=== PATIENT | male | born 1965 | race Caucasian/White ===

== ENCOUNTER 2021-10-17 15:46 | Inpatient (IN) | payer OTHER, SELFPAY ==
[~2021-10-17] VITALS: Ht 170.2 cm; Wt 74.8 kg
[2021-10-17 15:51] VITALS: BP_SYST 144
[2021-10-17] MEDS ORDERED: LORazepam 2 MG/ML VIAL IVP ONE ×2 (17:15→20:15)
[2021-10-17 17:21] LABS: CALCIUM 8.2 mg/dL (8.4-11.0); CREATININE 1.36 mg/dL (0.55-1.30); POTASSIUM 3.8 mmol/L (3.5-5.1)
[2021-10-17 17:25] LABS: MEAN CORPUSCULAR HEMOGLOBIN 19 pg (27-31); MEAN CORPUSCULAR HGB CONC 25 % (32-36)
[2021-10-17 17:33] LABS: ALBUMIN 2.4 g/dL (3.4-4.8); TOTAL BILIRUBIN 3.1 mg/dL (0.0-1.0)
[2021-10-17] MEDS ORDERED: KETAMINE 30 MG/3 ML SYRINGE ONE (17:42)
[2021-10-17 17:44] LABS: MEAN CORPUSCULAR VOLUME 76 fL (79.0-98.0); PLATELET COUNT (AUTO) 171 K/uL (130-430); RED BLOOD CELL COUNT(AUTO) 2.79 MIL/uL (4.2-6.2); RED CELL DISTRIBUTION WIDTH 23.2 % (9.0-15.0); WHITE BLOOD COUNT (AUTO) 13.4 K/uL (4.8-10.8)
[2021-10-17] MEDS ORDERED: KETAMINE 30 MG/3 ML SYRINGE IVP ONE (17:45)
[2021-10-17 17:47] LABS: HEMOGLOBIN 5.3 g/dL (14.0-18.0)
[2021-10-17] MEDS ORDERED: PIPERACILLIN/TAZO 3.375 GM in NS 50 ML IV ONE ×2 (18:15→21:45)
[2021-10-17] MEDS ORDERED: PROPOFOL DRIP 100 ML IV ONE (18:45)
[2021-10-17] MEDS ORDERED: ROCURONIUM BROMIDE 10 MG/ML (ZEMURON) IV ONE (18:45)
[2021-10-17] MEDS ORDERED: ETOMIDATE 20 MG/ 10 ML VIAL (AMIDATE) IVP ONE (18:45)
[2021-10-17 18:50] LABS: INR 2.4 (0.80-1.20); PROTHROMBIN TIME 22.9 SECS (9.5-12.5)
[2021-10-17] MEDS ORDERED: DEXTROSE 50% JECT 50 ML DISP.SYRIN ONE (18:50)
[2021-10-17] MEDS ORDERED: DEXTROSE 50% JECT 50 ML DISP.SYRIN IVP ONE ×2 (19:00→20:00)
[2021-10-17] MEDS ORDERED: D5LR 500 ML IV ONE (19:00)
[2021-10-17] MEDS ORDERED: NOREPINEPHRINE 4 MG/4 ML VIAL IV ONE ×2 (19:00→23:52)
[2021-10-17] MEDS ORDERED: FOLIC ACID 5 MG/ML VIAL IV ONE ×2 (19:30→20:25)
[2021-10-17] MEDS ORDERED: THIAMINE HCL 100 MG/ML VIAL IV ONE (19:30)
[2021-10-17] MEDS ORDERED: MAGNESIUM SULFATE 50 ML IV ONE (19:30)
[2021-10-17] MEDS ORDERED: PIPERACILLIN/TAZOBACTAM 3.375 GM/VIAL (ZOSYN) IV ONE (19:51)
[2021-10-17] MEDS ORDERED: FOLIC ACID 1 MG, THIAMINE HCL 100 MG, MAGNESIUM SULFATE 2 GM, MVI 10 ML in NACL 0.9% 1,... IV ONE (20:15)
[2021-10-17 20:20] LABS: BILIRUBIN,URINE NEGATIVE (NEGATIVE); BLOOD, URINE 2+ (NEGATIVE); CLARITY/URINE CLEAR (CLEAR); COLOR,URINE YELLOW (YELLOW); GLUCOSE,URINE NEGATIVE (NEGATIVE); KETONES,URINE 1+ (NEGATIVE); LEUKOCYTE ESTERASE ,URINE NEGATIVE (NEGATIVE); NITRITE, URINE NEGATIVE (NEGATIVE); PH,URINE 5.5 (5.0-8.0); PROTEIN URINE NEGATIVE (NEGATIVE); UROBILINOGEN,URINE 0.2 (0.2-1.0)
[2021-10-17] MEDS ORDERED: MAGNESIUM SULFATE 1 GM/2 ML VIAL ONE (20:25)
[2021-10-17] MEDS ORDERED: MVI 10 ML VIAL IV ONE (20:25)
[2021-10-17] MEDS ORDERED: THIAMINE HCL 100 MG/ML VIAL ONE (20:25)
[2021-10-17] MEDS ORDERED: metroNIDAZOLE 500 mg/NS 100 ML IV ONE (20:30)
[2021-10-17] MEDS ORDERED: VANCOMYCIN HCL 1,000 MG in NS 250 ML IV ONE (20:30)
[2021-10-17] MEDS ORDERED: NACL 0.9% 2,000 ML IV ONE (20:30)
[2021-10-17 20:33] LABS: BARBITURATE, URINE NEGATIVE (NEG <=200); BENZODIAZEPINE, URINE NEGATIVE (NEG <=150); CANNABINOID, URINE NEGATIVE (NEG <=50); COCAINE, URINE NEGATIVE (NEG <=150); METHAMPHETAMINES SCREEN,URINE NEGATIVE (NEG <=500); OPIATE, URINE NEGATIVE (NEG <=100); PHENCYCLIDINE SCREEN,URINE NEGATIVE (NEG <=25); UR TRICYCLIC ANTIDEPRESSANTS NEGATIVE (NEG <=300); URINE AMPHETAMINE NEGATIVE (NEG <=500); URINE METHADONE NEGATIVE (NEG <=200); URINE OXYCODONE SCREEN NEGATIVE (NEG <=100); URINE PROPOXYPHENE SCREEN NEGATIVE (NEG <=300)
[2021-10-17] MEDS ORDERED: VANCOMYCIN HCL 1000 MG/VIAL IV ONE (20:39)
[2021-10-17 21:04] LABS: BACTERIA,URINE FEW /HPF (None Seen); RBC,URINE 0-3 /HPF (0-3); WBC,URINE 0-3 /HPF (0-3)
[2021-10-17] MEDS ORDERED: PANTOPRAZOLE SODIUM 80 MG in NS 100 ML IVP ONE (21:15)
[2021-10-17] MEDS: PANTOPRAZOLE SODIUM 40 MG in NS 50 ML IV SCH (21:15)
[2021-10-17] MEDS: D5LR 1,000 ML IV SCH (21:29)
[2021-10-17] MEDS ORDERED: PHYTONADIONE 10 MG/ML AMP SUBCUT ONE (21:30)
[2021-10-17] MEDS ORDERED: SODIUM BICARBONATE 8.4% JECT 50 MEQ/50 ML SYRINGE IVP ONE (21:30)
[2021-10-17] MEDS ORDERED: PANTOPRAZOLE SODIUM 40 MG/VIAL (PROTONIX) ONE ×2 (21:41→23:31)
[2021-10-17] MEDS: SODIUM BICARBONATE 8.4% JECT 150 MEQ in D5W 1,000 ML IVP SCH (21:45)
[2021-10-17 21:58] VITALS: BP_SYST 122
[2021-10-17] MEDS ORDERED: SODIUM BICARBONATE 8.4% JECT 50 MEQ/50 ML SYRINGE ONE ×2 (22:13→23:49)
[2021-10-17] MEDS ORDERED: NOREPINEPHRINE BITARTRATE 8 MG in D5W 242 ML IV PRN (22:30)
[2021-10-17] MEDS ORDERED: HYDROCORTISONE SOD SUCC 100 MG/2 ML VIAL ONE (22:36)
[2021-10-17] MEDS ORDERED: HYDROCORTISONE SOD SUCC 100 MG/2 ML VIAL IVP ONE ×2 (22:45)
[2021-10-17 22:59] LABS: BAND % (MANUAL) 2 % (0-6); BASOPHILS % (MANUAL) 0 % (0-2); EOSINOPHILS % (MANUAL) 0 % (0-7); LYMPHOCYTES % (MANUAL) 8 % (20-46); MONOCYTES % (MANUAL) 8 % (0-11)
[2021-10-17] MEDS: IPRATROPIUM/ALBUTEROL SULFATE 3 ML AMPUL.NEB (DUONEB) INH SCH (23:00)
[2021-10-17] MEDS ORDERED: SODIUM BICARBONATE 8.4% VIAL 50 MEQ/50 ML VIAL ONE (23:33)
[2021-10-17] MEDS ORDERED: ALBUMIN HUMAN 25% 200 ML IV ONE (23:45)
[2021-10-17 23:56] VITALS: BP_SYST 126
[2021-10-18] VITALS (32 sets, daily range): BP systolic 100–132
[2021-10-18] MEDS ORDERED: SODIUM BICARBONATE 8.4% JECT 50 MEQ/50 ML SYRINGE IVP ONE (00:15)
[2021-10-18] MEDS ORDERED: NOREPINEPHRINE BITARTRATE 8 MG in NS 242 ML IV PRN (00:15)
[2021-10-18] MEDS ORDERED: ALBUMIN HUMAN 25% 200 ML IV ONE (01:04)
[2021-10-18] MEDS ORDERED: PIPERACILLIN/TAZOBACTAM 3.375 GM/VIAL (ZOSYN) IV ONE (01:08)
[2021-10-18] MEDS: PIPERACILLIN/TAZO 3.375/DEX-IS 50 ML IV SCH ×4 (01:16→18:05)
[2021-10-18] MEDS ORDERED: NOREPINEPHRINE 4 MG/4 ML VIAL IV ONE ×2 (02:11)
[2021-10-18] MEDS: PANTOPRAZOLE SODIUM 40 MG in NS 50 ML IV SCH ×6 (02:15→21:37)
[2021-10-18] MEDS ORDERED: NOREPINEPHRINE BITARTRATE 16 MG in NS 234 ML IV PRN (02:15)
[2021-10-18] MEDS ORDERED: PANTOPRAZOLE SODIUM 40 MG/VIAL (PROTONIX) ONE ×3 (03:35→08:36)
[2021-10-18] MEDS: IPRATROPIUM/ALBUTEROL SULFATE 3 ML AMPUL.NEB (DUONEB) INH SCH ×6 (03:40→23:00)
[2021-10-18 06:06] LABS: BASOPHILS # (AUTO) 0.1 K/uL (0.0-0.2); BASOPHILS % (AUTO) 0.3 % (0.0-2.0); EOSINOPHILS # (AUTO) 0.1 K/uL (0.0-0.4); EOSINOPHILS % (AUTO) 0.5 % (0.0-4.0); HEMATOCRIT 27.1 % (36-54); HEMOGLOBIN 7.5 g/dL (14.0-18.0); LYMPHOCYTES # (AUTO) 1.8 K/uL (1.0-5.5); LYMPHOCYTES % (AUTO) 9.3 % (20.5-51.5); MEAN CORPUSCULAR HEMOGLOBIN 22 pg (27-31); MEAN CORPUSCULAR HGB CONC 28 % (32-36); MEAN CORPUSCULAR VOLUME 79 fL (79.0-98.0); MONOCYTES # (AUTO) 1.9 K/uL (0.0-1.0); NEUTROPHILS # (AUTO) 15.4 K/uL (1.8-7.7); NEUTROPHILS % (AUTO) 79.9 % (40.0-70.0); PLATELET COUNT (AUTO) 138 K/uL (130-430); RED BLOOD CELL COUNT(AUTO) 3.44 MIL/uL (4.2-6.2); RED CELL DISTRIBUTION WIDTH 21.6 % (9.0-15.0); WHITE BLOOD COUNT (AUTO) 19.3 K/uL (4.8-10.8)
[2021-10-18 06:17] LABS: ALBUMIN 2.8 g/dL (3.4-4.8); CREATININE 1.3 mg/dL (0.55-1.30); PHOSPHORUS 5.2 mg/dL (2.7-4.5); TOTAL BILIRUBIN 4.2 mg/dL (0.0-1.0)
[2021-10-18 06:35] LABS: CALCIUM 6.9 mg/dL (8.4-11.0)
[2021-10-18] MEDS: SODIUM BICARBONATE 8.4% JECT 150 MEQ in D5W 1,000 ML IVP SCH ×5 (06:57→21:09)
[2021-10-18] MEDS: HYDROCORTISONE SOD SUCC 100 MG/2 ML VIAL IVP SCH ×3 (07:05→18:06)
[2021-10-18] MEDS: D5LR 1,000 ML IV SCH ×2 (07:15→16:15)
[2021-10-18] MEDS ORDERED: PHYTONADIONE 10 MG/ML AMP SUBCUT ONE (07:30)
[2021-10-18 08:56] LABS: PROTHROMBIN TIME 30.7 SECS (9.5-12.5)
[2021-10-18] MEDS ORDERED: ETOMIDATE 20 MG/ 10 ML VIAL (AMIDATE) IVP ONE (08:58)
[2021-10-18] MEDS ORDERED: ROCURONIUM BROMIDE 10 MG/ML (ZEMURON) IV ONE (08:58)
[2021-10-18] MEDS: OCTREOTIDE ACETATE 1,250 MCG in NS 243.75 ML IV SCH (09:30)
[2021-10-18] MEDS ORDERED: KCL 40 mEq in 100 mL (PREMIX) 100 ML IV ONE (13:00)
[2021-10-18 13:04] LABS: BASOPHILS # (AUTO) 0.1 K/uL (0.0-0.2); BASOPHILS % (AUTO) 0.4 % (0.0-2.0); EOSINOPHILS % (AUTO) 0.2 % (0.0-4.0); HEMATOCRIT 24.7 % (36-54); HEMOGLOBIN 7.3 g/dL (14.0-18.0); LYMPHOCYTES # (AUTO) 1.3 K/uL (1.0-5.5); LYMPHOCYTES % (AUTO) 9.4 % (20.5-51.5); MEAN CORPUSCULAR HEMOGLOBIN 22 pg (27-31); MEAN CORPUSCULAR HGB CONC 30 % (32-36); MEAN CORPUSCULAR VOLUME 76 fL (79.0-98.0); MONOCYTES # (AUTO) 1.5 K/uL (0.0-1.0); NEUTROPHILS # (AUTO) 10.8 K/uL (1.8-7.7); PLATELET COUNT (AUTO) 123 K/uL (130-430); RED BLOOD CELL COUNT(AUTO) 3.27 MIL/uL (4.2-6.2); RED CELL DISTRIBUTION WIDTH 21.3 % (9.0-15.0); WHITE BLOOD COUNT (AUTO) 13.7 K/uL (4.8-10.8)
[2021-10-18] MEDS ORDERED: ERGOCALCIFEROL 8000 UNITS/ML ORAL SOLUTION, 60 ML BOTTLE NG ONE (13:15)
[2021-10-18 13:22] LABS: CALCIUM 8.3 mg/dL (8.4-11.0); CREATININE 1.87 mg/dL (0.55-1.30); PHOSPHORUS 3.3 mg/dL (2.7-4.5)
[2021-10-18 13:41] LABS: POTASSIUM 2.8 mmol/L (3.5-5.1)
[2021-10-18] MEDS ORDERED: POTASSIUM CHLORIDE 20 MEQ/PKT PACKET NG ONE (16:30)
[2021-10-18] MEDS: PROPOFOL DRIP 100 ML IV PRN (16:50)
[2021-10-18 17:04] LABS: INR 3.2 (0.80-1.20)
[2021-10-18 17:06] LABS: PROTHROMBIN TIME 30.7 SECS (9.5-12.5)
[2021-10-18] MEDS ORDERED: POTASSIUM CHLORIDE 20 MEQ/PKT PACKET ONE (17:59)
[2021-10-19] VITALS (34 sets, daily range): BP systolic 86–131
[2021-10-19] MEDS: SODIUM BICARBONATE 8.4% JECT 150 MEQ in D5W 1,000 ML IVP SCH ×2 (01:21→07:01)
[2021-10-19] MEDS: IPRATROPIUM/ALBUTEROL SULFATE 3 ML AMPUL.NEB (DUONEB) INH SCH ×6 (03:00→23:34)
[2021-10-19] MEDS: D5LR 1,000 ML IV SCH (03:15)
[2021-10-19] MEDS: OCTREOTIDE ACETATE 1,250 MCG in NS 243.75 ML IV SCH ×2 (05:37→09:57)
[2021-10-19] MEDS: PANTOPRAZOLE SODIUM 40 MG in NS 50 ML IV SCH ×4 (05:37→21:24)
[2021-10-19 06:16] LABS: BASOPHILS % (AUTO) 0.1 % (0.0-2.0); EOSINOPHILS # (AUTO) 0.1 K/uL (0.0-0.4); EOSINOPHILS % (AUTO) 0.7 % (0.0-4.0); HEMATOCRIT 24.7 % (36-54); HEMOGLOBIN 8.1 g/dL (14.0-18.0); LYMPHOCYTES # (AUTO) 0.6 K/uL (1.0-5.5); LYMPHOCYTES % (AUTO) 6.6 % (20.5-51.5); MEAN CORPUSCULAR HEMOGLOBIN 24 pg (27-31); MEAN CORPUSCULAR HGB CONC 33 % (32-36); MEAN CORPUSCULAR VOLUME 73 fL (79.0-98.0); MONOCYTES # (AUTO) 0.8 K/uL (0.0-1.0); MONOCYTES % (AUTO) 9.4 % (1.7-9.3); NEUTROPHILS # (AUTO) 7.3 K/uL (1.8-7.7); NEUTROPHILS % (AUTO) 83.2 % (40.0-70.0); PLATELET COUNT (AUTO) 89 K/uL (130-430); RED BLOOD CELL COUNT(AUTO) 3.38 MIL/uL (4.2-6.2); RED CELL DISTRIBUTION WIDTH 21.6 % (9.0-15.0); WHITE BLOOD COUNT (AUTO) 8.8 K/uL (4.8-10.8)
[2021-10-19] MEDS: MIDAZOLAM IN NACL,ISO-OSMOT/PF 100 ML IV PRN (06:23)
[2021-10-19] MEDS ORDERED: PHYTONADIONE 10 MG in NS 50 ML IV ONE (07:00)
[2021-10-19 07:01] LABS: ALBUMIN 2.4 g/dL (3.4-4.8); CALCIUM 7.9 mg/dL (8.4-11.0); CREATININE 2.06 mg/dL (0.55-1.30); TOTAL BILIRUBIN 4.8 mg/dL (0.0-1.0)
[2021-10-19] MEDS: HYDROCORTISONE SOD SUCC 100 MG/2 ML VIAL IVP SCH ×4 (07:01→18:25)
[2021-10-19] MEDS: PIPERACILLIN/TAZO 3.375/DEX-IS 50 ML IV SCH ×4 (07:34→18:26)
[2021-10-19] MEDS: PROPOFOL DRIP 100 ML IV PRN (08:34)
[2021-10-19 08:58] LABS: POTASSIUM 2.3 mmol/L (3.5-5.1)
[2021-10-19] MEDS ORDERED: POTASSIUM CHLORIDE 40 MEQ in NS 250 ML IV ONE ×2 (09:15→14:00)
[2021-10-19] MEDS: ERGOCALCIFEROL 8000 UNITS/ML ORAL SOLUTION, 60 ML BOTTLE NG SCH (09:53)
[2021-10-19] MEDS: NACL 0.9% 1,000 ML IV SCH (11:14)
[2021-10-19] MEDS ORDERED: NAPH,MB-DB/K PH,MBDB 250 MG TAB PO ONE (15:30)
[2021-10-19] MEDS ORDERED: DEXTROSE 50% JECT 50 ML DISP.SYRIN IVP PRN (15:30)
[2021-10-19] MEDS ORDERED: INSULIN REGULAR, HUMAN 100 UNITS/ML, 10 ML VIAL (humuLIN R) SUBCUT PRN (15:30)
[2021-10-19] MEDS ORDERED: NAPH,MB-DB/K PH,MBDB 250 MG TAB GT ONE (15:30)
[2021-10-19] MEDS ORDERED: ALBUMIN HUMAN 25% 200 ML IV ONE (15:45)
[2021-10-19 17:44] LABS: CALCIUM 7.8 mg/dL (8.4-11.0); CREATININE 2.06 mg/dL (0.55-1.30)
[2021-10-19] MEDS ORDERED: INSULIN REGULAR, HUMAN 100 UNITS/ML, 10 ML VIAL SUBCUT ONE (19:00)
[2021-10-19] MEDS ORDERED: K PHOS 30 MM in NS 250 ML IV ONE (19:45)
[2021-10-19] MEDS: NAPH,MB-DB/K PH,MBDB 250 MG TAB GT SCH (21:21)
[2021-10-19] MEDS: INSULIN REGULAR, HUMAN 100 UNITS in NS 99 ML IV PRN ×2 (21:29)
[2021-10-19 23:51] LABS: BODY FLUID GLUCOSE 470 mg/dL
[2021-10-19 23:53] LABS: BODY FLUID TOTAL PROTEIN 683.8 g/dL
[2021-10-20] VITALS (29 sets, daily range): BP systolic 83–124
[2021-10-20] MEDS: PIPERACILLIN/TAZO 3.375/DEX-IS 50 ML IV SCH (00:43)
[2021-10-20] MEDS: HYDROCORTISONE SOD SUCC 100 MG/2 ML VIAL IVP SCH ×4 (00:45→17:50)
[2021-10-20] MEDS: NACL 0.9% 1,000 ML IV SCH ×2 (00:46→12:59)
[2021-10-20] MEDS: PANTOPRAZOLE SODIUM 40 MG in NS 50 ML IV SCH ×2 (00:57→05:22)
[2021-10-20 01:56] LABS: SOURCE/TYPE ,BODY FLUID ASCITES
[2021-10-20 01:57] LABS: APPEARANCE,SPUN,BODY FLUID CLEAR (CLEAR); BF APPEARANCE UNSPUN HAZY (CLEAR); BODY FLUID COLOR YELLOW (LT YELLOW); BODY FLUID SOURCE/ TYPE ASCITES; BODY FLUID TOTAL VOLUME 5500 mL; RBC, BODY FLUID 1497 /uL; WBC, BODY FLUID 93 /uL
[2021-10-20 01:58] LABS: EOSINOPHIL, BODY FLUID 0 %; LYMPHOCYTES, BODY FLUID 2 %; MONOCYTES,BODY FLUID 80 %; NEUTROPHIL, BODY FLUID 18 %
[2021-10-20] MEDS: INSULIN REGULAR, HUMAN 100 UNITS in NS 99 ML IV PRN ×2 (03:12)
[2021-10-20] MEDS: IPRATROPIUM/ALBUTEROL SULFATE 3 ML AMPUL.NEB (DUONEB) INH SCH ×6 (03:30→23:41)
[2021-10-20] MEDS ORDERED: LEVOFLOXACIN IN DEXTROSE 5 % 100 ML IV SCH (05:15)
[2021-10-20] MEDS ORDERED: LEVOFLOXACIN IN DEXTROSE 5 % 100 ML IV ONE ×2 (05:45→06:10)
[2021-10-20 06:40] LABS: BASOPHILS % (AUTO) 0.8 % (0.0-2.0); EOSINOPHILS % (AUTO) 0.4 % (0.0-4.0); HEMATOCRIT 23.9 % (36-54); HEMOGLOBIN 7.6 g/dL (14.0-18.0); LYMPHOCYTES # (AUTO) 0.5 K/uL (1.0-5.5); LYMPHOCYTES % (AUTO) 9.9 % (20.5-51.5); MEAN CORPUSCULAR HEMOGLOBIN 23 pg (27-31); MEAN CORPUSCULAR HGB CONC 32 % (32-36); MEAN CORPUSCULAR VOLUME 72 fL (79.0-98.0); MONOCYTES # (AUTO) 0.4 K/uL (0.0-1.0); MONOCYTES % (AUTO) 6.9 % (1.7-9.3); NEUTROPHILS # (AUTO) 4.3 K/uL (1.8-7.7); PLATELET COUNT (AUTO) 66 K/uL (130-430); RED BLOOD CELL COUNT(AUTO) 3.33 MIL/uL (4.2-6.2); RED CELL DISTRIBUTION WIDTH 23.2 % (9.0-15.0); WHITE BLOOD COUNT (AUTO) 5.2 K/uL (4.8-10.8)
[2021-10-20 06:58] LABS: ALBUMIN 2.5 g/dL (3.4-4.8); CALCIUM 7.8 mg/dL (8.4-11.0); CREATININE 2.01 mg/dL (0.55-1.30); TOTAL BILIRUBIN 4.7 mg/dL (0.0-1.0)
[2021-10-20 07:24] LABS: POTASSIUM 2.5 mmol/L (3.5-5.1)
[2021-10-20] MEDS: PANTOPRAZOLE SODIUM 40 MG/VIAL (PROTONIX) IVP SCH ×2 (09:13→21:45)
[2021-10-20] MEDS: NAPH,MB-DB/K PH,MBDB 250 MG TAB GT SCH ×3 (09:13→21:46)
[2021-10-20] MEDS: ERGOCALCIFEROL 8000 UNITS/ML ORAL SOLUTION, 60 ML BOTTLE NG SCH (09:24)
[2021-10-20] MEDS: CEFEPIME 1 GM in D5W 50 ML IV SCH ×2 (10:49→21:45)
[2021-10-20 11:38] LABS: INR 3.5 (0.80-1.20)
[2021-10-20 11:40] LABS: PROTHROMBIN TIME 36.9 SECS (9.5-12.5)
[2021-10-20] MEDS ORDERED: INSULIN REGULAR, HUMAN 100 UNITS/ML, 10 ML VIAL (humuLIN R) SUBCUT PRN (14:00)
[2021-10-20] MEDS ORDERED: DEXTROSE 50% JECT 50 ML DISP.SYRIN IVP PRN (14:00)
[2021-10-20] MEDS ORDERED: FUROSEMIDE 40 MG/4 ML VIAL IVP ONE (14:00)
[2021-10-20] MEDS ORDERED: POTASSIUM CHLORIDE 20 MEQ/PKT PACKET PO ONE (14:00)
[2021-10-20] MEDS ORDERED: POTASSIUM CHLORIDE 20 MEQ/PKT PACKET GT ONE (14:00)
[2021-10-20 14:13] LABS: TOTAL IRON BIND. CAPACITY 147 ug/dL (250-450)
[2021-10-20 16:22] LABS: ACETONE, SERUM NEGATIVE (NEGATIVE); ANION GAP 10 (5-15); CALCIUM 8.3 mg/dL (8.4-11.0); CHLORIDE 100 mmol/L (98-107); CREATININE 1.98 mg/dL (0.55-1.30); GLUCOSE 123 mg/dL (70-99); POTASSIUM 3.2 mmol/L (3.5-5.1); SODIUM SERUM 137 mmol/L (136-145); UREA NITROGEN, BLOOD 10 mg/dL (8-21)
[2021-10-20] MEDS ORDERED: POTASSIUM CHLORIDE 20 MEQ/PKT PACKET NG ONE ×2 (17:00→19:30)
[2021-10-20] MEDS ORDERED: POTASSIUM CHLORIDE 20 MEQ/PKT PACKET PO SCH (21:00)
[2021-10-20] MEDS ORDERED: POTASSIUM CHLORIDE 20 MEQ/PKT PACKET GT SCH (21:00)
[2021-10-20] MEDS: FUROSEMIDE 40 MG/4 ML VIAL IVP SCH (21:46)
[2021-10-21] VITALS (28 sets, daily range): BP systolic 98–120
[2021-10-21] MEDS: HYDROCORTISONE SOD SUCC 100 MG/2 ML VIAL IVP SCH ×4 (01:16→17:33)
[2021-10-21] MEDS: IPRATROPIUM/ALBUTEROL SULFATE 3 ML AMPUL.NEB (DUONEB) INH SCH ×6 (03:56→23:45)
[2021-10-21] MEDS: LEVOFLOXACIN 250 MG/D5W 50 ML IV SCH (06:36)
[2021-10-21 07:50] LABS: BASOPHILS % (AUTO) 0.2 % (0.0-2.0); HEMATOCRIT 29.8 % (36-54); HEMOGLOBIN 9.2 g/dL (14.0-18.0); LYMPHOCYTES # (AUTO) 0.6 K/uL (1.0-5.5); LYMPHOCYTES % (AUTO) 5.5 % (20.5-51.5); MEAN CORPUSCULAR HEMOGLOBIN 23 pg (27-31); MEAN CORPUSCULAR HGB CONC 31 % (32-36); MEAN CORPUSCULAR VOLUME 73 fL (79.0-98.0); MONOCYTES # (AUTO) 1.1 K/uL (0.0-1.0); MONOCYTES % (AUTO) 9.8 % (1.7-9.3); NEUTROPHILS # (AUTO) 9.3 K/uL (1.8-7.7); NEUTROPHILS % (AUTO) 84.5 % (40.0-70.0); PLATELET COUNT (AUTO) 70 K/uL (130-430); RED BLOOD CELL COUNT(AUTO) 4.06 MIL/uL (4.2-6.2); RED CELL DISTRIBUTION WIDTH 23.6 % (9.0-15.0); WHITE BLOOD COUNT (AUTO) 11.1 K/uL (4.8-10.8)
[2021-10-21 08:12] LABS: ALBUMIN 2.3 g/dL (3.4-4.8); CREATININE 1.66 mg/dL (0.55-1.30); PHOSPHORUS 3.4 mg/dL (2.7-4.5); POTASSIUM 3.7 mmol/L (3.5-5.1)
[2021-10-21] MEDS: NACL 0.9% 1,000 ML IV SCH ×2 (08:25→13:51)
[2021-10-21] MEDS: NAPH,MB-DB/K PH,MBDB 250 MG TAB GT SCH ×3 (08:36→21:05)
[2021-10-21] MEDS: FUROSEMIDE 40 MG/4 ML VIAL IVP SCH ×2 (08:38→21:06)
[2021-10-21] MEDS: PANTOPRAZOLE SODIUM 40 MG/VIAL (PROTONIX) IVP SCH ×2 (08:39→21:05)
[2021-10-21] MEDS: ERGOCALCIFEROL 8000 UNITS/ML ORAL SOLUTION, 60 ML BOTTLE NG SCH (08:57)
[2021-10-21 08:58] LABS: CALCIUM 6.9 mg/dL (8.4-11.0)
[2021-10-21] MEDS: CEFEPIME 1 GM in D5W 50 ML IV SCH ×2 (09:08→21:07)
[2021-10-21] MEDS: INSULIN LISPRO SLIDING SCALE 100 UNITS/ML VIAL (humaLOG) SUBCUT PRN ×2 (11:19→15:40)
[2021-10-21] MEDS ORDERED: calcitrioL 0.25 MCG CAPSULE NG ONE (12:00)
[2021-10-21] MEDS ORDERED: LACTULOSE 20 GM/30 ML UDC PO SCH (12:45)
[2021-10-21] MEDS ORDERED: METOCLOPRAMIDE HCL 10 MG/2 ML VIAL IVP ONE (13:30)
[2021-10-21] MEDS: CALCIUM CARBONATE 500 MG/ TAB.CHEW GT SCH ×3 (13:47→21:05)
[2021-10-21] MEDS: LACTULOSE 20 GM/30 ML UDC NG SCH ×3 (13:47→21:05)
[2021-10-21] MEDS: BISACODYL 5 MG TABLET.DR (DULCOLAX) PO PRN (13:49)
[2021-10-21] MEDS: MIDAZOLAM IN NACL,ISO-OSMOT/PF 100 ML IV PRN (13:51)
[2021-10-21] MEDS: METOCLOPRAMIDE HCL 10 MG/2 ML VIAL IVP SCH (17:34)
[2021-10-22] VITALS (25 sets, daily range): BP systolic 91–138
[2021-10-22] MEDS: METOCLOPRAMIDE HCL 10 MG/2 ML VIAL IVP SCH ×4 (00:54→16:48)
[2021-10-22] MEDS: HYDROCORTISONE SOD SUCC 100 MG/2 ML VIAL IVP SCH ×4 (00:55→16:48)
[2021-10-22] MEDS: IPRATROPIUM/ALBUTEROL SULFATE 3 ML AMPUL.NEB (DUONEB) INH SCH ×5 (04:02→23:51)
[2021-10-22] MEDS: LEVOFLOXACIN 250 MG/D5W 50 ML IV SCH (05:41)
[2021-10-22 08:17] LABS: ALBUMIN 2.4 g/dL (3.4-4.8); CALCIUM 7.5 mg/dL (8.4-11.0); CREATININE 1.65 mg/dL (0.55-1.30); PHOSPHORUS 3.5 mg/dL (2.7-4.5); TOTAL BILIRUBIN 5.8 mg/dL (0.0-1.0)
[2021-10-22] MEDS: PANTOPRAZOLE SODIUM 40 MG/VIAL (PROTONIX) IVP SCH ×2 (08:30→20:48)
[2021-10-22] MEDS: FUROSEMIDE 40 MG/4 ML VIAL IVP SCH ×2 (08:31→20:48)
[2021-10-22] MEDS: CALCIUM CARBONATE 500 MG/ TAB.CHEW GT SCH ×4 (08:33→20:48)
[2021-10-22] MEDS: BISACODYL 5 MG TABLET.DR (DULCOLAX) PO PRN (08:33)
[2021-10-22] MEDS: NAPH,MB-DB/K PH,MBDB 250 MG TAB GT SCH (08:33)
[2021-10-22] MEDS: calcitrioL 0.25 MCG CAPSULE NG SCH (08:34)
[2021-10-22] MEDS: LACTULOSE 20 GM/30 ML UDC NG SCH ×4 (08:36→20:48)
[2021-10-22] MEDS: ERGOCALCIFEROL 8000 UNITS/ML ORAL SOLUTION, 60 ML BOTTLE NG SCH (08:36)
[2021-10-22] MEDS: CEFEPIME 1 GM in D5W 50 ML IV SCH ×2 (08:40→20:48)
[2021-10-22 09:02] LABS: BASOPHILS % (AUTO) 0.3 % (0.0-2.0); HEMATOCRIT 29.6 % (36-54); HEMOGLOBIN 9.1 g/dL (14.0-18.0); LYMPHOCYTES # (AUTO) 0.7 K/uL (1.0-5.5); LYMPHOCYTES % (AUTO) 6.3 % (20.5-51.5); MEAN CORPUSCULAR HEMOGLOBIN 23 pg (27-31); MEAN CORPUSCULAR HGB CONC 31 % (32-36); MEAN CORPUSCULAR VOLUME 74 fL (79.0-98.0); MONOCYTES # (AUTO) 1.8 K/uL (0.0-1.0); NEUTROPHILS # (AUTO) 8.6 K/uL (1.8-7.7); NEUTROPHILS % (AUTO) 77.4 % (40.0-70.0); RED BLOOD CELL COUNT(AUTO) 4.02 MIL/uL (4.2-6.2); RED CELL DISTRIBUTION WIDTH 24.5 % (9.0-15.0); WHITE BLOOD COUNT (AUTO) 11.1 K/uL (4.8-10.8)
[2021-10-22 09:22] LABS: PLATELET COUNT (AUTO) 72 K/uL (130-430)
[2021-10-22] MEDS: INSULIN LISPRO SLIDING SCALE 100 UNITS/ML VIAL (humaLOG) SUBCUT PRN ×2 (11:03→16:49)
[2021-10-22] MEDS ORDERED: POTASSIUM CHLORIDE 20 MEQ/PKT PACKET PO ONE (13:00)
[2021-10-22] MEDS ORDERED: INSULIN GLARGINE 100 UNITS/ML 10 ML VIAL SUBCUT ONE (13:00)
[2021-10-22] MEDS: INSULIN GLARGINE 100 UNITS/ML 10 ML VIAL SUBCUT SCH (20:50)
[2021-10-23] VITALS (35 sets, daily range): BP systolic 16–136
[2021-10-23] MEDS: METOCLOPRAMIDE HCL 10 MG/2 ML VIAL IVP SCH ×4 (00:58→17:07)
[2021-10-23] MEDS: HYDROCORTISONE SOD SUCC 100 MG/2 ML VIAL IVP SCH ×4 (00:58→17:07)
[2021-10-23] MEDS: IPRATROPIUM/ALBUTEROL SULFATE 3 ML AMPUL.NEB (DUONEB) INH SCH ×6 (03:52→22:39)
[2021-10-23] MEDS: LEVOFLOXACIN 250 MG/D5W 50 ML IV SCH (05:29)
[2021-10-23 07:23] LABS: HEMATOCRIT 31.6 % (36-54); HEMOGLOBIN 9.8 g/dL (14.0-18.0); MEAN CORPUSCULAR HEMOGLOBIN 23 pg (27-31); MEAN CORPUSCULAR HGB CONC 31 % (32-36); MEAN CORPUSCULAR VOLUME 73 fL (79.0-98.0); PLATELET COUNT (AUTO) 70 K/uL (130-430); RED BLOOD CELL COUNT(AUTO) 4.31 MIL/uL (4.2-6.2); RED CELL DISTRIBUTION WIDTH 25.4 % (9.0-15.0); WHITE BLOOD COUNT (AUTO) 12.1 K/uL (4.8-10.8)
[2021-10-23] MEDS: INSULIN LISPRO SLIDING SCALE 100 UNITS/ML VIAL (humaLOG) SUBCUT PRN ×3 (08:18→14:57)
[2021-10-23] MEDS: CALCIUM CARBONATE 500 MG/ TAB.CHEW GT SCH ×4 (08:21→21:48)
[2021-10-23] MEDS: INSULIN GLARGINE 100 UNITS/ML 10 ML VIAL SUBCUT SCH ×2 (08:21→21:50)
[2021-10-23] MEDS: calcitrioL 0.25 MCG CAPSULE NG SCH (08:21)
[2021-10-23] MEDS: LACTULOSE 20 GM/30 ML UDC NG SCH ×4 (08:21→21:47)
[2021-10-23] MEDS: PANTOPRAZOLE SODIUM 40 MG/VIAL (PROTONIX) IVP SCH ×2 (08:22→21:48)
[2021-10-23] MEDS: FUROSEMIDE 40 MG/4 ML VIAL IVP SCH ×2 (08:22→21:49)
[2021-10-23] MEDS: ERGOCALCIFEROL 8000 UNITS/ML ORAL SOLUTION, 60 ML BOTTLE NG SCH (08:28)
[2021-10-23] MEDS: CEFEPIME 1 GM in D5W 50 ML IV SCH ×2 (08:30→21:46)
[2021-10-23 08:49] LABS: ALBUMIN 2.3 g/dL (3.4-4.8); CALCIUM 8.1 mg/dL (8.4-11.0); CREATININE 2.37 mg/dL (0.55-1.30); POTASSIUM 3.4 mmol/L (3.5-5.1); TOTAL BILIRUBIN 7.1 mg/dL (0.0-1.0)
[2021-10-23 10:32] LABS: BAND % (MANUAL) 3 % (0-6); BASOPHILS % (MANUAL) 0 % (0-2); EOSINOPHILS % (MANUAL) 0 % (0-7); LYMPHOCYTES % (MANUAL) 17 % (20-46); MONOCYTES % (MANUAL) 14 % (0-11)
[2021-10-23] MEDS: MIDAZOLAM IN NACL,ISO-OSMOT/PF 100 ML IV PRN (10:56)
[2021-10-23] MEDS ORDERED: MINERAL OIL 30 ML UDC PO ONE (12:15)
[2021-10-23 16:50] LABS: INR 3.1 (0.80-1.20)
[2021-10-23 17:17] LABS: PROTHROMBIN TIME 34.2 SECS (9.5-12.5)
[2021-10-23] MEDS: MINERAL OIL 30 ML UDC PO SCH (21:47)
[2021-10-23] MEDS: SILVER SULFADIAZINE 1%, 25 GM TOPICAL CREAM (SSD) TP SCH (21:48)
[2021-10-24] VITALS (30 sets, daily range): BP systolic 87–146
[2021-10-24] MEDS: IPRATROPIUM/ALBUTEROL SULFATE 3 ML AMPUL.NEB (DUONEB) INH SCH ×5 (04:06→19:39)
[2021-10-24] MEDS: METOCLOPRAMIDE HCL 10 MG/2 ML VIAL IVP SCH ×2 (06:47)
[2021-10-24] MEDS: HYDROCORTISONE SOD SUCC 100 MG/2 ML VIAL IVP SCH ×4 (06:47→18:45)
[2021-10-24] MEDS: LEVOFLOXACIN 250 MG/D5W 50 ML IV SCH (06:47)
[2021-10-24 06:51] LABS: CALCIUM 8.5 mg/dL (8.4-11.0); CREATININE 2.97 mg/dL (0.55-1.30); POTASSIUM 3.2 mmol/L (3.5-5.1); TOTAL BILIRUBIN 5.4 mg/dL (0.0-1.0)
[2021-10-24] MEDS: MINERAL OIL 30 ML UDC PO SCH (08:23)
[2021-10-24 08:25] LABS: BASOPHILS % (AUTO) 0.2 % (0.0-2.0); EOSINOPHILS % (AUTO) 0.1 % (0.0-4.0); HEMATOCRIT 29.8 % (36-54); HEMOGLOBIN 9.3 g/dL (14.0-18.0); LYMPHOCYTES # (AUTO) 0.7 K/uL (1.0-5.5); LYMPHOCYTES % (AUTO) 6.4 % (20.5-51.5); MEAN CORPUSCULAR HEMOGLOBIN 23 pg (27-31); MEAN CORPUSCULAR HGB CONC 31 % (32-36); MEAN CORPUSCULAR VOLUME 74 fL (79.0-98.0); MONOCYTES # (AUTO) 2.4 K/uL (0.0-1.0); MONOCYTES % (AUTO) 22.6 % (1.7-9.3); NEUTROPHILS # (AUTO) 7.5 K/uL (1.8-7.7); NEUTROPHILS % (AUTO) 70.7 % (40.0-70.0); PLATELET COUNT (AUTO) 50 K/uL (130-430); RED BLOOD CELL COUNT(AUTO) 4.02 MIL/uL (4.2-6.2); RED CELL DISTRIBUTION WIDTH 26.9 % (9.0-15.0); WHITE BLOOD COUNT (AUTO) 10.6 K/uL (4.8-10.8)
[2021-10-24] MEDS: PANTOPRAZOLE SODIUM 40 MG/VIAL (PROTONIX) IVP SCH (08:38)
[2021-10-24] MEDS: calcitrioL 0.25 MCG CAPSULE NG SCH (08:38)
[2021-10-24] MEDS: CALCIUM CARBONATE 500 MG/ TAB.CHEW GT SCH ×3 (08:38→18:45)
[2021-10-24] MEDS: CEFEPIME 1 GM in D5W 50 ML IV SCH (08:38)
[2021-10-24] MEDS: INSULIN GLARGINE 100 UNITS/ML 10 ML VIAL SUBCUT SCH (08:40)
[2021-10-24] MEDS: ERGOCALCIFEROL 8000 UNITS/ML ORAL SOLUTION, 60 ML BOTTLE NG SCH (08:41)
[2021-10-24] MEDS: SILVER SULFADIAZINE 1%, 25 GM TOPICAL CREAM (SSD) TP SCH (08:43)
[2021-10-24] MEDS: LACTULOSE 20 GM/30 ML UDC NG SCH (09:00)
[2021-10-24] MEDS ORDERED: LACTULOSE 20 GM/30 ML UDC NG ONE (09:30)
[2021-10-24] MEDS: NACL 0.9% 1,000 ML IV SCH ×3 (09:55→18:15)
[2021-10-24] MEDS ORDERED: POTASSIUM CHLORIDE 40 MEQ in NS 250 ML IV ONE (11:00)
[2021-10-24] MEDS ORDERED: LACTULOSE 20 GM/30 ML UDC NG SCH ×2 (15:00→21:00)
[2021-10-24] MEDS: MIDAZOLAM IN NACL,ISO-OSMOT/PF 100 ML IV PRN (15:33)
[2021-10-24 17:04] LABS: CALCIUM 8.5 mg/dL (8.4-11.0); CREATININE 2.98 mg/dL (0.55-1.30); POTASSIUM 3.2 mmol/L (3.5-5.1)
[2021-10-24 17:10] LABS: ALBUMIN 1.9 g/dL (3.4-4.8); TOTAL BILIRUBIN 4.6 mg/dL (0.0-1.0)
== END 2021-10-24 22:35 | disposition short-term general hospital (02) | DRG 870 ==
LOC: SED 15:46 → SIC 21:09
PROVIDERS: ADMIT Internal Medicine; ATTEND Internal Medicine
PROC: 0BH17EZ Insertion of Endotracheal Airway into Trachea, Via Natural or Artificial Opening (ICD-10-PCS; principal; 2021-10-17)
PROC: 5A1955Z Respiratory Ventilation, Greater than 96 Consecutive Hours (ICD-10-PCS; 2021-10-17)
PROC: 30233N1 Transfusion of Nonautologous Red Blood Cells into Peripheral Vein, Percutaneous Approach (ICD-10-PCS; 2021-10-17)
PROC: 30233K1 Transfusion of Nonautologous Frozen Plasma into Peripheral Vein, Percutaneous Approach (ICD-10-PCS; 2021-10-18)
PROC: 02HV33Z Insertion of Infusion Device into Superior Vena Cava, Percutaneous Approach (ICD-10-PCS; 2021-10-18)
PROC: B548ZZA Ultrasonography of Superior Vena Cava, Guidance (ICD-10-PCS; 2021-10-18)
PROC: 0W9G3ZZ Drainage of Peritoneal Cavity, Percutaneous Approach (ICD-10-PCS; 2021-10-19)
DX: A41.9 Sepsis, unspecified organism (principal); J96.21 Acute and chronic respiratory failure with hypoxia; K65.9 Peritonitis, unspecified; R65.21 Severe sepsis with septic shock; G93.41 Metabolic encephalopathy; J69.0 Pneumonitis due to inhalation of food and vomit; N17.0 Acute kidney failure with tubular necrosis; E43 Unspecified severe protein-calorie malnutrition; I85.11 Secondary esophageal varices with bleeding; K72.91 Hepatic failure, unspecified with coma; D68.9 Coagulation defect, unspecified; E27.40 Unspecified adrenocortical insufficiency; F10.239 Alcohol dependence with withdrawal, unspecified; Z99.11 Dependence on respirator [ventilator] status; E72.20 Disorder of urea cycle metabolism, unspecified; J91.8 Pleural effusion in other conditions classified elsewhere; D64.9 Anemia, unspecified; D69.6 Thrombocytopenia, unspecified; E11.22 Type 2 diabetes mellitus with diabetic chronic kidney disease; E11.65 Type 2 diabetes mellitus with hyperglycemia; E87.6 Hypokalemia; G89.4 Chronic pain syndrome; I12.9 Hypertensive chronic kidney disease with stage 1 through stage 4 chronic kidney disease, or unspecified chronic kidney disease; K70.11 Alcoholic hepatitis with ascites; E83.51 Hypocalcemia; E83.39 Other disorders of phosphorus metabolism; Y90.3 Blood alcohol level of 60-79 mg/100 ml; K21.9 Gastro-esophageal reflux disease without esophagitis; Z20.822 Contact with and (suspected) exposure to COVID-19; K70.31 Alcoholic cirrhosis of liver with ascites; N18.9 Chronic kidney disease, unspecified; Z79.4 Long term (current) use of insulin; Z79.899 Other long term (current) drug therapy; Z91.018 Allergy to other foods; Z68.25 Body mass index [BMI] 25.0-25.9, adult
CPT/HCPCS: 36415; 36430; 36600; 49083; 70450-TC; 71045; 74018; 76376; 76705; 80048; 80053; 80307; 81000; 82009; 82042; 82140; 82306; 82550; 82607; 82803-TC; 82947; 82962; 83540; 83550; 83605; 83735; 83880; 84100; 84157; 84484; 85007; 85025; 85027; 85610-TC; 85730-TC; 86738; 86886; 86900; 86901; 86920; 87040; 87070-TC; 87081; 87230-TC; 87449; 88108; 89051-TC; 89060-TC; 93005; 93306; 94002; 94003; 94640; 96365; 96366; 96367; 96368; 96375; 99291; C1729; C9113; G0482; J0692; J1720; J1815; J1940; J1956; J2060; J2354; J2543; J2704; J2765; J3370; J3411; J3430; J3475; J3480; J3490; J7050; J7060; P9021; P9059